=== PATIENT | female | born 1940 | race African-American/Black ===

== ENCOUNTER 2016-12-19 02:34 | Inpatient (IN) | payer MEDICARE, MEDICAID ==
[2016-12-19] VITALS (12 sets, daily range): BP systolic 124–166; BP diastolic 50–102
[~2016-12-19] VITALS: Ht 154.9 cm; Wt 60.4 kg
[2016-12-19] MEDS ORDERED: NITROGLYCERIN OINT 1GM/INCH UDPKT TD SCH (03:00)
[2016-12-19] MEDS ORDERED: ONDANSETRON HCL 4MG/2ML VIAL IV SCH (03:00)
[2016-12-19] MEDS ORDERED: MORPHINE SULFATE 4 MG/ML CPJ (NOT FOR IM USE) IV SCH ×2 (03:00→05:20)
[2016-12-19 07:06] LABS: CARBON DIOXIDE 23 mEq/L (21-32); CHLORIDE 101 mEq/L (98-107)
[2016-12-19 07:42] LABS: HEMATOCRIT. 39.5 % (36.0-48.0); HEMOGLOBIN. 13.1 g/dL (12.0-16.0); MEAN CORPUSCULAR HEMOGLOBIN 27.6 pg (28.0-32.0); MEAN CORPUSCULAR VOLUME 83.4 fL (81.0-99.0); MEAN PLATELET VOLUME 10.4 fl (7.4-10.4); PLATELET 247 x1000/uL (130-400); RED BLOOD CELL COUNT 4.74 mill/uL (4.2-5.4); RED CELL DISTRIBUTION WIDTH 15.1 % (11.6-14.6)
[2016-12-19 07:52] LABS: PLATELET ESTIMATE NORMAL
[2016-12-19] MEDS ORDERED: GUAIFENESIN 200MG/10ML SUGAR FREE UDC PO PRN (09:45)
[2016-12-19] MEDS ORDERED: MAGNESIUM/ALUMINUM HYDROXIDE/SIMETHICONE 30ML UDC PO PRN (09:45)
[2016-12-19] MEDS ORDERED: DIPHENHYDRAMINE 50MG/ML VIAL IV PRN (09:45)
[2016-12-19] MEDS ORDERED: NA PHOS,M-B/NA PHOS,DI-BA ENEMA 118ML PR PRN (09:45)
[2016-12-19] MEDS ORDERED: DOCUSATE SODIUM 100MG CAPSULE PO PRN (09:45)
[2016-12-19] MEDS ORDERED: ACETAMINOPHEN 325MG TABLET PO PRN (09:45)
[2016-12-19] MEDS ORDERED: CLONIDINE 0.1MG TABLET PO PRN (09:45)
[2016-12-19] MEDS ORDERED: TRAMADOL 50MG TABLET PO PRN (09:45)
[2016-12-19] MEDS ORDERED: NITROGLYCERIN 0.4MG TABLET SL SL PRN (09:45)
[2016-12-19] MEDS ORDERED: IPRATROPIUM/ALBUTEROL 0.5-3(2.5)MG/3ML NEB INH PRN (09:45)
[2016-12-19] MEDS ORDERED: LORAZEPAM 2MG/ML CPJ IV PRN (09:45)
[2016-12-19] MEDS ORDERED: ONDANSETRON HCL 4MG/2ML VIAL IV PRN (09:45)
[2016-12-19] MEDS ORDERED: DEXTROSE 50% WATER 50ML SYRINGE IV PRN (09:45)
[2016-12-19] MEDS ORDERED: ASPIRIN 325MG TABLET PO ONE (10:15)
[2016-12-19] MEDS ORDERED: HEPARIN 5000 UNITS/ML VIAL IV NR (10:15)
[2016-12-19] MEDS ORDERED: LIDOCAINE HCL 1% 20ML VIAL (Pyxis) INJ ONE (11:29)
[2016-12-19] MEDS ORDERED: MIDAZOLAM HCL 2 MG/2 ML VIAL ONE ×2 (11:30→12:11)
[2016-12-19] MEDS ORDERED: FENTANYL CITRATE/PF 50MCG/ML 2ML VIAL ONE (11:30)
[2016-12-19] MEDS ORDERED: IOHEXOL-300 100 ML BOTTLE ONE ×2 (11:33→12:01)
[2016-12-19] MEDS ORDERED: ASPIRIN/SOD BICARB/CITRIC ACID 324MG TAB EFF PO NR (12:00)
[2016-12-19] MEDS ORDERED: IOVERSOL 240MG/ML 100ML BOTTLE IV ONE (12:05)
[2016-12-19] MEDS ORDERED: INSULIN LISPRO 100 UNITS/ML SUBCUT SCH (12:20)
[2016-12-19] MEDS: BLOOD SUGAR DIAGNOSTIC STRIP TEST SCH ×3 (13:11→20:14)
[2016-12-19] MEDS: ENOXAPARIN 60MG/0.6ML SYR SUBCUT SCH (13:25)
[2016-12-19] MEDS: LOSARTAN POTASSIUM 25 MG TABLET PO SCH (13:48)
[2016-12-19] MEDS ORDERED: HEPARIN SODIUM 1,000 UNIT/1ML VIAL IV ONE (14:14)
[2016-12-19 14:21] LABS: CREATINE KINASE MB FRACTION 56.1 ng/mL (0.5-3.6)
[2016-12-19] MEDS: MORPHINE SULFATE 4 MG/ML CPJ (NOT FOR IM USE) IV PRN ×2 (15:16→19:32)
[2016-12-19] MEDS: NITROGLYCERIN OINT 1GM/INCH UDPKT TD SCH (16:35)
[2016-12-19] MEDS: METHIMAZOLE 5MG TABLET PO SCH (16:35)
[2016-12-19] MEDS ORDERED: ASPI-864 PO (16:59)
[2016-12-19] MEDS ORDERED: SITA100T11 PO (16:59)
[2016-12-19] MEDS ORDERED: SITA1TAB6 PO (17:00)
[2016-12-19] MEDS ORDERED: LISI30TA36 PO (17:01)
[2016-12-19] MEDS ORDERED: AMLO10TA80 PO (17:01)
[2016-12-19] MEDS ORDERED: METHAMAZOLE PO (17:02)
[2016-12-19] MEDS ORDERED: GLIM1TAB2 PO (17:04)
[2016-12-19] MEDS ORDERED: MELO-106 PO (17:04)
[2016-12-19] MEDS ORDERED: METF500T4 PO (17:05)
[2016-12-19] MEDS: INSULIN LISPRO 100 UNITS/ML SUBCUT SCH ×2 (17:14→22:11)
[2016-12-19] MEDS ORDERED: ZOLPIDEM TARTRATE 5MG TABLET PO PRN (21:00)
[2016-12-19] MEDS ORDERED: METOPROLOL TARTRATE 25MG TABLET PO SCH (21:00)
[2016-12-19] MEDS ORDERED: ATORVASTATIN CALCIUM 40MG TABLET PO SCH (21:00)
[2016-12-19] MEDS: METOPROLOL TARTRATE 50MG TABLET PO SCH (22:03)
[2016-12-19] MEDS: AMLODIPINE 5MG TABLET PO SCH (22:07)
[2016-12-20] VITALS (17 sets, daily range): BP systolic 97–143; BP diastolic 41–73
[2016-12-20] MEDS: NITROGLYCERIN OINT 1GM/INCH UDPKT TD SCH ×5 (00:05→21:48)
[2016-12-20] MEDS: BLOOD SUGAR DIAGNOSTIC STRIP TEST SCH ×4 (05:52→20:09)
[2016-12-20 07:24] LABS: BASOPHILS % 0.7 % (0.0-2.0); HEMATOCRIT. 34.4 % (36.0-48.0); HEMOGLOBIN. 11.3 g/dL (12.0-16.0); LYMPHOCYTES % 19.4 % (20.0-50.0); MEAN CORPUSCULAR HEMOGLOBIN 27.6 pg (28.0-32.0); MEAN CORPUSCULAR VOLUME 84.2 fL (81.0-99.0); MEAN PLATELET VOLUME 9.5 fl (7.4-10.4); NEUTROPHILS % 72.9 % (40.0-76.0); PLATELET 217 x1000/uL (130-400); RED BLOOD CELL COUNT 4.09 mill/uL (4.2-5.4); RED CELL DISTRIBUTION WIDTH 14.9 % (11.6-14.6)
[2016-12-20] MEDS: INSULIN LISPRO 100 UNITS/ML SUBCUT SCH ×4 (07:46→20:33)
[2016-12-20] MEDS: LOSARTAN POTASSIUM 25 MG TABLET PO SCH (07:46)
[2016-12-20] MEDS: METHIMAZOLE 5MG TABLET PO SCH (07:47)
[2016-12-20 07:57] LABS: CHLORIDE 99 mEq/L (98-107)
[2016-12-20 08:24] LABS: CARBON DIOXIDE 27 mEq/L (21-32); CREATINE KINASE 483 IU/L (26-192); HDL CHOLESTEROL 57 mg/dL (40-59); LDL CHOLESTEROL 110 mg/dL (5-100)
[2016-12-20] MEDS ORDERED: ASPIRIN 325MG EC TABLET PO SCH (09:00)
[2016-12-20] MEDS: AMLODIPINE 5MG TABLET PO SCH ×2 (09:46→20:32)
[2016-12-20] MEDS: METOPROLOL TARTRATE 50MG TABLET PO SCH ×2 (09:47→20:31)
[2016-12-20] MEDS: ENOXAPARIN 60MG/0.6ML SYR SUBCUT SCH (11:16)
[2016-12-20] MEDS: ATORVASTATIN CALCIUM 40MG TABLET PO SCH (20:31)
[2016-12-20] MEDS: INSULIN DETEMIR UD 100 UNITS/ML SYR SUBCUT SCH (21:53)
[2016-12-21] VITALS (13 sets, daily range): BP systolic 108–143; BP diastolic 47–73
[2016-12-21] MEDS: NITROGLYCERIN OINT 1GM/INCH UDPKT TD SCH ×4 (04:20→22:25)
[2016-12-21] MEDS: INSULIN LISPRO 100 UNITS/ML SUBCUT SCH ×4 (05:32→21:04)
[2016-12-21] MEDS: BLOOD SUGAR DIAGNOSTIC STRIP TEST SCH ×4 (05:32→20:15)
[2016-12-21 06:13] LABS: BASOPHILS % 0.4 % (0.0-2.0); EOSINOPHILS % 1.5 % (0.0-5.0); HEMATOCRIT. 29.6 % (36.0-48.0); HEMOGLOBIN. 9.8 g/dL (12.0-16.0); LYMPHOCYTES % 27.3 % (20.0-50.0); MEAN CORPUSCULAR HEMOGLOBIN 28.2 pg (28.0-32.0); MEAN CORPUSCULAR VOLUME 84.9 fL (81.0-99.0); MEAN PLATELET VOLUME 9.5 fl (7.4-10.4); MONOCYTES % 7.6 % (2.0-8.0); NEUTROPHILS % 63.2 % (40.0-76.0); PLATELET 227 x1000/uL (130-400); RED BLOOD CELL COUNT 3.49 mill/uL (4.2-5.4); RED CELL DISTRIBUTION WIDTH 14.7 % (11.6-14.6)
[2016-12-21] MEDS: METHIMAZOLE 5MG TABLET PO SCH (08:30)
[2016-12-21] MEDS: ASPIRIN 81MG EC TABLET PO SCH (08:31)
[2016-12-21] MEDS: METOPROLOL TARTRATE 50MG TABLET PO SCH ×2 (08:39→21:02)
[2016-12-21] MEDS: LOSARTAN POTASSIUM 25 MG TABLET PO SCH (08:39)
[2016-12-21] MEDS: AMLODIPINE 5MG TABLET PO SCH ×2 (08:39→21:02)
[2016-12-21] MEDS: CLOPIDOGREL 75MG TABLET PO SCH (08:40)
[2016-12-21] MEDS: MORPHINE SULFATE 4 MG/ML CPJ (NOT FOR IM USE) IV PRN (11:49)
[2016-12-21] MEDS: ENOXAPARIN 60MG/0.6ML SYR SUBCUT SCH (12:00)
[2016-12-21] MEDS: ATORVASTATIN CALCIUM 40MG TABLET PO SCH (21:00)
[2016-12-21] MEDS: INSULIN DETEMIR UD 100 UNITS/ML SYR SUBCUT SCH (22:19)
[2016-12-22] VITALS (11 sets, daily range): BP systolic 105–146; BP diastolic 49–67
[2016-12-22] MEDS: NITROGLYCERIN OINT 1GM/INCH UDPKT TD SCH ×3 (05:47→18:15)
[2016-12-22] MEDS: BLOOD SUGAR DIAGNOSTIC STRIP TEST SCH ×3 (05:47→17:49)
[2016-12-22] MEDS: INSULIN LISPRO 100 UNITS/ML SUBCUT SCH ×3 (09:11→17:20)
[2016-12-22] MEDS: LOSARTAN POTASSIUM 25 MG TABLET PO SCH (09:14)
[2016-12-22] MEDS: AMLODIPINE 5MG TABLET PO SCH (09:14)
[2016-12-22] MEDS: METOPROLOL TARTRATE 50MG TABLET PO SCH (09:15)
[2016-12-22] MEDS: METHIMAZOLE 5MG TABLET PO SCH (09:16)
[2016-12-22] MEDS: CLOPIDOGREL 75MG TABLET PO SCH (09:16)
[2016-12-22] MEDS: ASPIRIN 81MG EC TABLET PO SCH (09:16)
[2016-12-22] MEDS: ENOXAPARIN 60MG/0.6ML SYR SUBCUT SCH (12:05)
[2016-12-22 12:07] LABS: BG CARBOXYHEMOGLOBIN 0.3 % (0.5-1.5); BG DEOXYHEMOGLOBIN 12.7 % (0.0-5.0); BG FRACTION INSPIRED OXYGEN 21; BG METHEMOGLOBIN 0.2 % (0.0-1.5); BG OXYGEN SATURATION 87.2 % (92.0-98.5); BG OXYHEMOGLOBIN 86.8 % (94.0-97.0); BG PCO2 39.2 mmHg (35.0-45.0); BG PH 7.456 (7.350-7.450); BG PO2 51.3 mmHg (75.0-100.0); BG SAMPLE SITE RIGHT BRACHIAL; BG TOTAL HEMOGLOBIN 10.1 g/dL (12.0-18.0); BG VENT MODE ROOM AIR
[2016-12-22 13:34] LABS: HEMATOCRIT 28.1 % (36.0-48.0); HEMOGLOBIN 9.3 g/dL (12.0-16.0); MEAN CORPUSCULAR HEMOGLOBIN 27.9 pg (28.0-32.0); MEAN CORPUSCULAR VOLUME 84.2 fL (81.0-99.0); PLATELET 256 x1000/uL (130-400); RED BLOOD CELL COUNT 3.34 mill/uL (4.2-5.4); RED CELL DISTRIBUTION WIDTH 14.5 % (11.6-14.6)
== END 2016-12-22 21:05 | disposition home or self-care (01) | DRG 281 ==
LOC: ER 02:34 → 6WST 06:44 → ENRESERV 08:15 → SUPCPDRO 09:29 → 3WST 10:45
PROVIDERS: ADMIT Internal Medicine; ATTEND Internal Medicine
PROC: 4A023N7 Measurement of Cardiac Sampling and Pressure, Left Heart, Percutaneous Approach (ICD-10-PCS; principal; 2016-12-19)
PROC: B2111ZZ Fluoroscopy of Multiple Coronary Arteries using Low Osmolar Contrast (ICD-10-PCS; 2016-12-19)
PROC: B41 Imaging, Lower Arteries, Fluoroscopy (ICD-10-PCS; 2016-12-19)
DX: I21.4 Non-ST elevation (NSTEMI) myocardial infarction (principal); E87.1 Hypo-osmolality and hyponatremia; C91.10 Chronic lymphocytic leukemia of B-cell type not having achieved remission; I11.9 Hypertensive heart disease without heart failure; E11.51 Type 2 diabetes mellitus with diabetic peripheral angiopathy without gangrene; E05.20 Thyrotoxicosis with toxic multinodular goiter without thyrotoxic crisis or storm; I27.2 Other secondary pulmonary hypertension; R09.02 Hypoxemia; J44.9 Chronic obstructive pulmonary disease, unspecified; I25.110 Atherosclerotic heart disease of native coronary artery with unstable angina pectoris; E78.00 Pure hypercholesterolemia, unspecified; F17.210 Nicotine dependence, cigarettes, uncomplicated; I70.8 Atherosclerosis of other arteries; M81.0 Age-related osteoporosis without current pathological fracture; I34.0 Nonrheumatic mitral (valve) insufficiency; Z79.4 Long term (current) use of insulin; Z82.49 Family history of ischemic heart disease and other diseases of the circulatory system; Z82.62 Family history of osteoporosis; I25.2 Old myocardial infarction; Z79.899 Other long term (current) drug therapy; Z83.3 Family history of diabetes mellitus
CPT/HCPCS: 36415; 36600; 71010; 80048; 80053; 80061; 82375; 82550; 82553; 82805; 82962; 83036; 83735; 83880; 84439; 84443; 84484; 85025; 85027; 85347; 87040; 87077; 87086; 87186; 93005; 93306; 93458; 93970; 99285; C1760; C1769; C1887; C1893; J1644; J1650; J1815; J2060; J2250; J2270; J3010; J3490; Q9967

== ENCOUNTER 2016-12-30 21:46 | Inpatient (IN) | payer MEDICARE, MEDICAID ==
[~2016-12-30] VITALS: Ht 154.9 cm; Wt 59.4 kg
[~2016-12-30 21:46] MED LIST: AMLO10TA80 PO; ASPI-864 PO; GLIM1TAB2 PO; MELO-106 PO; METF500T4 PO; METHAMAZOLE PO; SITA100T11 PO; SITA1TAB6 PO
[2016-12-30] MEDS ORDERED: METHYLPREDNISOLONE SOD SUCC 125 MG/2 ML VIAL IV STA (22:15)
[2016-12-30] MEDS ORDERED: IPRATROPIUM BROMIDE (0.02%) 0.5MG/2.5ML NEB HHN STA (22:15)
[2016-12-30] MEDS ORDERED: MAGNESIUM 2 G PREMIX 50 ML IV ONE (22:15)
[2016-12-30] MEDS ORDERED: ALBUTEROL (0.083%) 2.5MG/3ML NEB HHN SCH (22:30)
[2016-12-30 22:55] LABS: BASOPHILS % 0.6 % (0.0-2.0); EOSINOPHILS % 1.1 % (0.0-5.0); HEMATOCRIT. 31.9 % (36.0-48.0); HEMOGLOBIN. 10.1 g/dL (12.0-16.0); LYMPHOCYTES % 15.9 % (20.0-50.0); MEAN CORPUSCULAR HEMOGLOBIN 27.4 pg (28.0-32.0); MEAN CORPUSCULAR VOLUME 86.7 fL (81.0-99.0); MEAN PLATELET VOLUME 8.3 fl (7.4-10.4); MONOCYTES % 5.5 % (2.0-8.0); NEUTROPHILS % 76.9 % (40.0-76.0); PLATELET 532 x1000/uL (130-400); RED BLOOD CELL COUNT 3.68 mill/uL (4.2-5.4); RED CELL DISTRIBUTION WIDTH 15.2 % (11.6-14.6)
[2016-12-30 22:58] LABS: CHLORIDE 104 mEq/L (98-107)
[2016-12-30 23:01] LABS: PROTHROMBIN TIME 10.7 sec (9.4-11.6)
[2016-12-30 23:04] LABS: CARBON DIOXIDE 27 mEq/L (21-32)
[2016-12-30 23:08] LABS: TROPONIN I 0.16 ng/mL (0.00-0.04)
[2016-12-31] VITALS (23 sets, daily range): BP systolic 66–157; BP diastolic 20–92
[2016-12-31] MEDS: PIPERACILLIN/TAZ 2.25G PREMIX 50 ML IV SCH
[2016-12-31] MEDS ORDERED: AZITHROMYCIN 500 MG in DEXT 5% WATER 250 ML IV ONE (00:45)
[2016-12-31] MEDS ORDERED: CEFTRIAXONE 1 G PREMIX 50 ML IV ONE (00:45)
[2016-12-31] MEDS: METHYLPREDNISOLONE SOD SUCC 40 MG/ML VIAL IV SCH ×3 (04:33→21:01)
[2016-12-31] MEDS: IPRATROPIUM/ALBUTEROL 0.5-3(2.5)MG/3ML NEB HHN SCH ×5 (04:35→21:39)
[2016-12-31] MEDS ORDERED: METO50TA5 PO (06:43)
[2016-12-31] MEDS ORDERED: CLOP75TA16 PO (06:43)
[2016-12-31] MEDS ORDERED: LOSA25TA12 PO (06:43)
[2016-12-31] MEDS ORDERED: FLUTICASONE INH (06:43)
[2016-12-31] MEDS ORDERED: FAMO20TA8 PO (06:43)
[2016-12-31] MEDS ORDERED: ATOR-2 PO (06:43)
[2016-12-31] MEDS ORDERED: PROAIR PO (12:36)
[2016-12-31] MEDS ORDERED: METH10TA7 PO (12:36)
[2016-12-31] MEDS: CLOPIDOGREL 75MG TABLET PO SCH (13:53)
[2016-12-31] MEDS: ASPIRIN 81MG EC TABLET PO SCH (13:53)
[2016-12-31] MEDS: METOPROLOL TARTRATE 50MG TABLET PO SCH ×2 (13:54→22:04)
[2016-12-31] MEDS: FAMOTIDINE 20MG TABLET PO SCH (13:55)
[2016-12-31] MEDS: AMLODIPINE 10MG TABLET PO SCH (13:55)
[2016-12-31] MEDS: LOSARTAN POTASSIUM 25 MG TABLET PO SCH ×2 (13:58→22:04)
[2016-12-31 15:49] LABS: BG BASE EXCESS -6.6 mmol/L (-2.0-2.0); BG BILEVEL POS AIRWAY PRESSURE ST=15/5; BG CARBOXYHEMOGLOBIN 0.3 % (0.5-1.5); BG DEOXYHEMOGLOBIN 3.6 % (0.0-5.0); BG FRACTION INSPIRED OXYGEN 60; BG HCO3 ACT 20.3 mmol/L (22.0-26.0); BG METHEMOGLOBIN 0.1 % (0.0-1.5); BG OXYGEN SATURATION 96.4 % (92.0-98.5); BG PCO2 46.6 mmHg (35.0-45.0); BG PH 7.258 (7.350-7.450); BG PO2 104.4 mmHg (75.0-100.0); BG PRESSURE SUPPORT 10; BG SAMPLE SITE LEFT BRACHIAL; BG TOTAL HEMOGLOBIN 10.8 g/dL (12.0-18.0); BG VENT MODE MASK - BIPAP; BG VENT RATE 16 set
[2016-12-31] MEDS ORDERED: LORAZEPAM 2MG/ML CPJ IV PRN ×2 (16:30→23:15)
[2016-12-31] MEDS: ENOXAPARIN 30MG/0.3ML SYR SUBCUT SCH (18:42)
[2016-12-31] MEDS ORDERED: PIPERACILLIN SODIUM/TAZOBACTAM 4.5 G in DEXT 5% WATER 100 ML IV SCH (21:30)
[2016-12-31 22:11] LABS: CREATINE KINASE MB FRACTION 2.1 ng/mL (0.5-3.6); TROPONIN I 0.12 ng/mL (0.00-0.04)
[2016-12-31] MEDS ORDERED: INSULIN LISPRO 100 UNITS/ML SUBCUT NR (23:15)
[2016-12-31] MEDS ORDERED: DEXTROSE 50% WATER 50ML SYRINGE IV PRN (23:15)
[2016-12-31] MEDS: LORAZEPAM 2MG/ML CPJ IM PRN (23:42)
[2017-01-01] VITALS (21 sets, daily range): BP systolic 85–144; BP diastolic 44–84
[2017-01-01] MEDS: INSULIN LISPRO 100 UNITS/ML SUBCUT SCH ×5 (01:24→23:45)
[2017-01-01] MEDS: BLOOD SUGAR DIAGNOSTIC STRIP TEST SCH ×5 (01:24→23:35)
[2017-01-01] MEDS: IPRATROPIUM/ALBUTEROL 0.5-3(2.5)MG/3ML NEB HHN SCH ×6 (01:51→21:20)
[2017-01-01] MEDS: METHYLPREDNISOLONE SOD SUCC 40 MG/ML VIAL IV SCH ×2 (05:39→16:54)
[2017-01-01] MEDS: PIPERACILLIN/TAZ 2.25G PREMIX 50 ML IV SCH ×4 (05:46→23:35)
[2017-01-01 06:29] LABS: HEMATOCRIT. 30.2 % (36.0-48.0); HEMOGLOBIN. 9.7 g/dL (12.0-16.0); MEAN CORPUSCULAR HEMOGLOBIN 27.7 pg (28.0-32.0); MEAN CORPUSCULAR VOLUME 86.3 fL (81.0-99.0); MEAN PLATELET VOLUME 8.7 fl (7.4-10.4); PLATELET 509 x1000/uL (130-400); RED CELL DISTRIBUTION WIDTH 15.1 % (11.6-14.6)
[2017-01-01] MEDS ORDERED: LIDOCAINE HCL 1% 20ML VIAL (Pyxis) INJ ONE (08:26)
[2017-01-01] MEDS ORDERED: SODIUM BICARBONATE 4% (2.4MEQ) 5ML VIAL IV ONE (08:26)
[2017-01-01 08:58] LABS: BG BASE EXCESS -3.4 mmol/L (-2.0-2.0); BG BILEVEL POS AIRWAY PRESSURE ST=15/5; BG CARBOXYHEMOGLOBIN 0.3 % (0.5-1.5); BG DEOXYHEMOGLOBIN 5.4 % (0.0-5.0); BG FRACTION INSPIRED OXYGEN 60; BG HCO3 ACT 22.6 mmol/L (22.0-26.0); BG METHEMOGLOBIN 0.3 % (0.0-1.5); BG OXYGEN SATURATION 94.6 % (92.0-98.5); BG PCO2 44.5 mmHg (35.0-45.0); BG PH 7.323 (7.350-7.450); BG PO2 77.1 mmHg (75.0-100.0); BG PRESSURE SUPPORT 10; BG SAMPLE SITE LEFT BRACHIAL; BG TOTAL HEMOGLOBIN 10.6 g/dL (12.0-18.0); BG VENT MODE MASK - BIPAP; BG VENT RATE 16 set
[2017-01-01] MEDS: LOSARTAN POTASSIUM 25 MG TABLET PO SCH ×2 (09:00→20:58)
[2017-01-01] MEDS: FAMOTIDINE 20MG TABLET PO SCH (09:00)
[2017-01-01] MEDS ORDERED: SODIUM POLYSTYRENE SULFONATE 15 G/60 ML BOT PO NR (09:15)
[2017-01-01] MEDS: CLOPIDOGREL 75MG TABLET PO SCH (10:53)
[2017-01-01] MEDS: ASPIRIN 81MG EC TABLET PO SCH (10:53)
[2017-01-01] MEDS: METOPROLOL TARTRATE 50MG TABLET PO SCH ×2 (11:43→20:59)
[2017-01-01] MEDS: AMLODIPINE 10MG TABLET PO SCH (11:44)
[2017-01-01 13:45] LABS: PLATELET ESTIMATE INCREASED
[2017-01-01] MEDS: ENOXAPARIN 30MG/0.3ML SYR SUBCUT SCH (16:55)
[2017-01-01] MEDS: LORAZEPAM 2MG/ML CPJ IM PRN (20:58)
[2017-01-01] MEDS ORDERED: HALOPERIDOL LACTATE 5MG/ML VIAL IM SCH (22:45)
[2017-01-02] VITALS (22 sets, daily range): BP systolic 99–154; BP diastolic 15–99
[2017-01-02] MEDS: IPRATROPIUM/ALBUTEROL 0.5-3(2.5)MG/3ML NEB HHN SCH ×6 (00:27→20:17)
[2017-01-02] MEDS: LORAZEPAM 2MG/ML CPJ IM PRN (01:16)
[2017-01-02] MEDS: METHYLPREDNISOLONE SOD SUCC 40 MG/ML VIAL IV SCH ×2 (05:15→17:36)
[2017-01-02] MEDS: BLOOD SUGAR DIAGNOSTIC STRIP TEST SCH ×3 (05:15→17:22)
[2017-01-02] MEDS: PIPERACILLIN/TAZ 2.25G PREMIX 50 ML IV SCH ×3 (05:15→17:36)
[2017-01-02] MEDS: INSULIN LISPRO 100 UNITS/ML SUBCUT SCH ×3 (05:30→17:38)
[2017-01-02] MEDS: AMLODIPINE 10MG TABLET PO SCH (09:00)
[2017-01-02] MEDS: METOPROLOL TARTRATE 50MG TABLET PO SCH ×3 (09:00→21:12)
[2017-01-02] MEDS: FAMOTIDINE 20MG TABLET PO SCH (09:00)
[2017-01-02] MEDS: LOSARTAN POTASSIUM 25 MG TABLET PO SCH ×2 (09:00→21:12)
[2017-01-02] MEDS: ASPIRIN 81MG EC TABLET PO SCH (12:19)
[2017-01-02] MEDS: CLOPIDOGREL 75MG TABLET PO SCH (12:19)
[2017-01-02 13:59] LABS: BG BASE EXCESS 1.4 mmol/L (-2.0-2.0); BG BILEVEL POS AIRWAY PRESSURE ST=15/5; BG CARBOXYHEMOGLOBIN 0.3 % (0.5-1.5); BG DEOXYHEMOGLOBIN 4.8 % (0.0-5.0); BG FRACTION INSPIRED OXYGEN 60; BG HCO3 ACT 26.5 mmol/L (22.0-26.0); BG METHEMOGLOBIN 0.3 % (0.0-1.5); BG OXYGEN SATURATION 95.2 % (92.0-98.5); BG OXYHEMOGLOBIN 94.6 % (94.0-97.0); BG PCO2 44.1 mmHg (35.0-45.0); BG PH 7.396 (7.350-7.450); BG PO2 79.5 mmHg (75.0-100.0); BG PRESSURE SUPPORT 10; BG SAMPLE SITE LEFT BRACHIAL; BG TOTAL HEMOGLOBIN 9.9 g/dL (12.0-18.0); BG VENT MODE MASK - BIPAP; BG VENT RATE 16 set
[2017-01-02] MEDS ORDERED: DILTIAZEM HCL 125 MG in DEXT 5% WATER 100 ML IV PRN (14:00)
[2017-01-02 14:16] LABS: HEMATOCRIT. 27.9 % (36.0-48.0); MEAN CORPUSCULAR HEMOGLOBIN 27.4 pg (28.0-32.0); MEAN PLATELET VOLUME 8.9 fl (7.4-10.4); PLATELET 464 x1000/uL (130-400); RED BLOOD CELL COUNT 3.28 mill/uL (4.2-5.4); RED CELL DISTRIBUTION WIDTH 14.9 % (11.6-14.6)
[2017-01-02 14:36] LABS: CREATINE KINASE MB FRACTION 2.5 ng/mL (0.5-3.6)
[2017-01-02 15:08] LABS: TROPONIN I 0.87 ng/mL (0.00-0.04)
[2017-01-02 16:33] LABS: PLATELET ESTIMATE INCREASED
[2017-01-02] MEDS ORDERED: FUROSEMIDE 40MG/4ML VIAL IVP SCH (17:15)
[2017-01-02] MEDS ORDERED: KCL 20MEQ/100ML PREMIX 100 ML IV NR (17:30)
[2017-01-02] MEDS: ENOXAPARIN 30MG/0.3ML SYR SUBCUT SCH (17:37)
[2017-01-02] MEDS ORDERED: DEXT 5%/0.45% NACL 1000ML 1,000 ML IV SCH (21:00)
[2017-01-02] MEDS: ATORVASTATIN CALCIUM 40MG TABLET PO SCH (21:12)
[2017-01-03] VITALS (13 sets, daily range): BP systolic 100–167; BP diastolic 43–99
[2017-01-03] MEDS: IPRATROPIUM/ALBUTEROL 0.5-3(2.5)MG/3ML NEB HHN SCH ×6 (00:38→20:09)
[2017-01-03] MEDS: INSULIN LISPRO 100 UNITS/ML SUBCUT SCH ×4 (00:38→17:40)
[2017-01-03] MEDS: BLOOD SUGAR DIAGNOSTIC STRIP TEST SCH ×4 (00:39→17:39)
[2017-01-03] MEDS: PIPERACILLIN/TAZ 2.25G PREMIX 50 ML IV SCH ×3 (00:40→10:14)
[2017-01-03] MEDS: LORAZEPAM 2MG/ML CPJ IM PRN ×2 (03:41→09:26)
[2017-01-03] MEDS: METHYLPREDNISOLONE SOD SUCC 40 MG/ML VIAL IV SCH ×2 (06:53→17:39)
[2017-01-03 06:54] LABS: BASOPHILS % 0.2 % (0.0-2.0); LYMPHOCYTES % 11.2 % (20.0-50.0); MEAN CORPUSCULAR HEMOGLOBIN 27.1 pg (28.0-32.0); MEAN PLATELET VOLUME 8.5 fl (7.4-10.4); MONOCYTES % 6.7 % (2.0-8.0); NEUTROPHILS % 81.9 % (40.0-76.0); PLATELET 477 x1000/uL (130-400); RED BLOOD CELL COUNT 3.33 mill/uL (4.2-5.4); RED CELL DISTRIBUTION WIDTH 15.1 % (11.6-14.6)
[2017-01-03 08:28] LABS: TROPONIN I 1.5 ng/mL (0.00-0.04)
[2017-01-03] MEDS: ASPIRIN 81MG EC TABLET PO SCH (08:53)
[2017-01-03] MEDS: CLOPIDOGREL 75MG TABLET PO SCH (08:53)
[2017-01-03] MEDS: LOSARTAN POTASSIUM 25 MG TABLET PO SCH ×2 (08:54→21:56)
[2017-01-03] MEDS: METOPROLOL TARTRATE 50MG TABLET PO SCH ×2 (08:54→21:56)
[2017-01-03] MEDS: FAMOTIDINE 20MG TABLET PO SCH (08:54)
[2017-01-03] MEDS: AMLODIPINE 10MG TABLET PO SCH (08:54)
[2017-01-03] MEDS ORDERED: LIDOCAINE HCL/PF 1% 2ML VIAL ONE (08:56)
[2017-01-03] MEDS: POTASSIUM CHLORIDE 20MEQ/PACKET PO SCH (11:59)
[2017-01-03] MEDS: FUROSEMIDE 40MG/4ML VIAL IVP SCH ×2 (11:59→17:39)
[2017-01-03 12:07] LABS: CLARITY URINE CLOUDY (CLEAR); COLOR URINE YELLOW (YELLOW); GLUCOSE URINE TRACE (NEGATIVE); KETONES URINE NEGATIVE (NEGATIVE); LEUKOCYTE ESTERASE URINE 2+ (NEGATIVE); NITRITE URINE NEGATIVE (NEGATIVE); OCCULT BLOOD URINE 3+ (NEGATIVE); PROTEIN URINE TRACE (NEGATIVE); SPECIFIC GRAVITY URINE 1.015 (1.005-1.030); UROBILINOGEN URINE 0.2 E.U./dL (0.2-1.0)
[2017-01-03] MEDS: SODIUM CHLORIDE 0.45% 1,000 ML IV SCH (12:30)
[2017-01-03 12:32] LABS: BG BASE EXCESS 2.5 mmol/L (-2.0-2.0); BG BILEVEL POS AIRWAY PRESSURE 15/5; BG CARBOXYHEMOGLOBIN 0.3 % (0.5-1.5); BG DEOXYHEMOGLOBIN 2.3 % (0.0-5.0); BG FRACTION INSPIRED OXYGEN 50; BG HCO3 ACT 27.6 mmol/L (22.0-26.0); BG METHEMOGLOBIN 0.3 % (0.0-1.5); BG OXYGEN SATURATION 97.7 % (92.0-98.5); BG OXYHEMOGLOBIN 97.1 % (94.0-97.0); BG PCO2 45.5 mmHg (35.0-45.0); BG PH 7.401 (7.350-7.450); BG PO2 119.7 mmHg (75.0-100.0); BG SAMPLE SITE RIGHT BRACHIAL; BG TOTAL HEMOGLOBIN 9.4 g/dL (12.0-18.0); BG VENT MODE MASK - BIPAP; BG VENT RATE 16 set
[2017-01-03] MEDS ORDERED: LEVOFLOXACIN 500MG PREMIX 100 ML IV NR (14:00)
[2017-01-03] MEDS: PIPERACILLIN/TAZ 3.375G PREMIX 50 ML IV SCH (17:39)
[2017-01-03] MEDS: ENOXAPARIN 30MG/0.3ML SYR SUBCUT SCH (17:39)
[2017-01-03] MEDS ORDERED: ATORVASTATIN CALCIUM 40MG TABLET PO SCH (21:00)
[2017-01-03] MEDS: ATORVASTATIN CALCIUM 40MG TABLET PO SCH (21:56)
[2017-01-04] VITALS (15 sets, daily range): BP systolic 105–145; BP diastolic 41–72
[2017-01-04] MEDS: IPRATROPIUM/ALBUTEROL 0.5-3(2.5)MG/3ML NEB HHN SCH ×6 (00:07→20:38)
[2017-01-04] MEDS: BLOOD SUGAR DIAGNOSTIC STRIP TEST SCH ×5 (00:50→21:11)
[2017-01-04] MEDS: INSULIN LISPRO 100 UNITS/ML SUBCUT SCH ×5 (00:52→21:10)
[2017-01-04] MEDS: PIPERACILLIN/TAZ 3.375G PREMIX 50 ML IV SCH ×3 (02:18→17:41)
[2017-01-04] MEDS: METHYLPREDNISOLONE SOD SUCC 40 MG/ML VIAL IV SCH (05:19)
[2017-01-04 06:04] LABS: CARBON DIOXIDE 37 mEq/L (21-32); CHLORIDE 95 mEq/L (98-107)
[2017-01-04 06:17] LABS: BASOPHILS % 0.1 % (0.0-2.0); HEMATOCRIT. 29.8 % (36.0-48.0); HEMOGLOBIN. 9.8 g/dL (12.0-16.0); LYMPHOCYTES % 15.1 % (20.0-50.0); MEAN CORPUSCULAR HEMOGLOBIN 27.5 pg (28.0-32.0); MEAN CORPUSCULAR VOLUME 83.7 fL (81.0-99.0); MEAN PLATELET VOLUME 8.8 fl (7.4-10.4); MONOCYTES % 6.7 % (2.0-8.0); NEUTROPHILS % 78.1 % (40.0-76.0); PLATELET 440 x1000/uL (130-400); RED BLOOD CELL COUNT 3.56 mill/uL (4.2-5.4); RED CELL DISTRIBUTION WIDTH 14.8 % (11.6-14.6)
[2017-01-04] MEDS: CLOPIDOGREL 75MG TABLET PO SCH (08:31)
[2017-01-04] MEDS: LOSARTAN POTASSIUM 25 MG TABLET PO SCH ×2 (08:31→21:06)
[2017-01-04] MEDS: METOPROLOL TARTRATE 50MG TABLET PO SCH ×2 (08:31→21:09)
[2017-01-04] MEDS: ASPIRIN 81MG EC TABLET PO SCH (08:31)
[2017-01-04] MEDS: POTASSIUM CHLORIDE 20MEQ/PACKET PO SCH (08:31)
[2017-01-04] MEDS: FUROSEMIDE 40MG/4ML VIAL IVP SCH ×2 (08:31→17:41)
[2017-01-04] MEDS: AMLODIPINE 10MG TABLET PO SCH (08:32)
[2017-01-04] MEDS: FAMOTIDINE 20MG TABLET PO SCH (08:32)
[2017-01-04] MEDS: SODIUM CHLORIDE 0.45% 1,000 ML IV SCH (12:00)
[2017-01-04] MEDS: LEVOFLOXACIN 250MG PREMIX 50 ML IV SCH (13:36)
[2017-01-04] MEDS: POTASSIUM CHLORIDE 10MEQ TABLET SR PO SCH (15:05)
[2017-01-04] MEDS: PREDNISONE 20MG TABLET PO SCH (15:05)
[2017-01-04] MEDS: ENOXAPARIN 30MG/0.3ML SYR SUBCUT SCH (17:41)
[2017-01-04] MEDS: ATORVASTATIN CALCIUM 40MG TABLET PO SCH (21:04)
[2017-01-05] VITALS (11 sets, daily range): BP systolic 103–150; BP diastolic 40–76
[2017-01-05] MEDS: IPRATROPIUM/ALBUTEROL 0.5-3(2.5)MG/3ML NEB HHN SCH ×6 (00:58→21:12)
[2017-01-05] MEDS: PIPERACILLIN/TAZ 3.375G PREMIX 50 ML IV SCH ×3 (02:08→17:44)
[2017-01-05 06:03] LABS: BASOPHILS % 0.1 % (0.0-2.0); HEMATOCRIT. 29.1 % (36.0-48.0); HEMOGLOBIN. 9.5 g/dL (12.0-16.0); LYMPHOCYTES % 17.3 % (20.0-50.0); MEAN CORPUSCULAR HEMOGLOBIN 27.4 pg (28.0-32.0); MEAN PLATELET VOLUME 8.9 fl (7.4-10.4); MONOCYTES % 6.3 % (2.0-8.0); NEUTROPHILS % 76.3 % (40.0-76.0); PLATELET 407 x1000/uL (130-400); RED BLOOD CELL COUNT 3.46 mill/uL (4.2-5.4); RED CELL DISTRIBUTION WIDTH 14.8 % (11.6-14.6)
[2017-01-05] MEDS: BLOOD SUGAR DIAGNOSTIC STRIP TEST SCH ×4 (06:34→21:00)
[2017-01-05] MEDS: INSULIN LISPRO 100 UNITS/ML SUBCUT SCH ×4 (06:34→21:39)
[2017-01-05] MEDS: ASPIRIN 81MG EC TABLET PO SCH (08:17)
[2017-01-05] MEDS: FUROSEMIDE 40MG/4ML VIAL IVP SCH (08:17)
[2017-01-05] MEDS: CLOPIDOGREL 75MG TABLET PO SCH (08:17)
[2017-01-05] MEDS: POTASSIUM CHLORIDE 10MEQ TABLET SR PO SCH (08:17)
[2017-01-05] MEDS: PREDNISONE 20MG TABLET PO SCH (08:17)
[2017-01-05] MEDS: POTASSIUM CHLORIDE 20MEQ/PACKET PO SCH (08:17)
[2017-01-05] MEDS: FAMOTIDINE 20MG TABLET PO SCH (08:17)
[2017-01-05] MEDS: AMLODIPINE 10MG TABLET PO SCH (08:18)
[2017-01-05] MEDS: LOSARTAN POTASSIUM 25 MG TABLET PO SCH ×2 (08:18→21:42)
[2017-01-05] MEDS: METOPROLOL TARTRATE 50MG TABLET PO SCH ×2 (08:18→21:42)
[2017-01-05] MEDS: SODIUM CHLORIDE 0.45% 1,000 ML IV SCH (12:28)
[2017-01-05] MEDS: LEVOFLOXACIN 250MG PREMIX 50 ML IV SCH (14:15)
[2017-01-05] MEDS ORDERED: POTASSIUM CHLORIDE 10MEQ TABLET SR PO NR (17:15)
[2017-01-05] MEDS: ENOXAPARIN 30MG/0.3ML SYR SUBCUT SCH (17:44)
[2017-01-05 18:55] LABS: BASOPHILS % 0.3 % (0.0-2.0); EOSINOPHILS % 0.2 % (0.0-5.0); HEMATOCRIT. 27.5 % (36.0-48.0); LYMPHOCYTES % 11.6 % (20.0-50.0); MEAN CORPUSCULAR HEMOGLOBIN 27.7 pg (28.0-32.0); MEAN CORPUSCULAR VOLUME 84.9 fL (81.0-99.0); MEAN PLATELET VOLUME 8.9 fl (7.4-10.4); MONOCYTES % 5.1 % (2.0-8.0); NEUTROPHILS % 82.8 % (40.0-76.0); PLATELET 370 x1000/uL (130-400); RED BLOOD CELL COUNT 3.24 mill/uL (4.2-5.4)
[2017-01-05] MEDS ORDERED: INSULIN DETEMIR UD 100 UNITS/ML SYR SUBCUT NR (20:00)
[2017-01-05] MEDS: ATORVASTATIN CALCIUM 40MG TABLET PO SCH (21:41)
[2017-01-05] MEDS: FUROSEMIDE 20MG TABLET PO SCH (21:42)
[2017-01-06] VITALS (9 sets, daily range): BP systolic 105–137; BP diastolic 46–64
[2017-01-06] MEDS: IPRATROPIUM/ALBUTEROL 0.5-3(2.5)MG/3ML NEB HHN SCH ×4 (01:16→13:09)
[2017-01-06] MEDS: PIPERACILLIN/TAZ 3.375G PREMIX 50 ML IV SCH ×2 (01:50→10:52)
[2017-01-06] MEDS: BLOOD SUGAR DIAGNOSTIC STRIP TEST SCH ×2 (06:44→11:41)
[2017-01-06] MEDS: INSULIN LISPRO 100 UNITS/ML SUBCUT SCH ×2 (06:44→11:57)
[2017-01-06 07:10] LABS: BASOPHILS % 0.2 % (0.0-2.0); EOSINOPHILS % 1.4 % (0.0-5.0); HEMOGLOBIN. 9.9 g/dL (12.0-16.0); LYMPHOCYTES % 26.7 % (20.0-50.0); MEAN CORPUSCULAR HEMOGLOBIN 27.7 pg (28.0-32.0); MEAN CORPUSCULAR VOLUME 84.2 fL (81.0-99.0); MEAN PLATELET VOLUME 8.8 fl (7.4-10.4); MONOCYTES % 5.6 % (2.0-8.0); NEUTROPHILS % 66.1 % (40.0-76.0); PLATELET 399 x1000/uL (130-400); RED BLOOD CELL COUNT 3.56 mill/uL (4.2-5.4); RED CELL DISTRIBUTION WIDTH 14.5 % (11.6-14.6)
[2017-01-06] MEDS: POTASSIUM CHLORIDE 10MEQ TABLET SR PO SCH (08:54)
[2017-01-06] MEDS: POTASSIUM CHLORIDE 20MEQ/PACKET PO SCH (08:54)
[2017-01-06] MEDS: PREDNISONE 20MG TABLET PO SCH (08:54)
[2017-01-06] MEDS: CLOPIDOGREL 75MG TABLET PO SCH (08:54)
[2017-01-06] MEDS: ASPIRIN 81MG EC TABLET PO SCH (08:54)
[2017-01-06] MEDS: FUROSEMIDE 20MG TABLET PO SCH (08:54)
[2017-01-06] MEDS: LOSARTAN POTASSIUM 25 MG TABLET PO SCH (08:55)
[2017-01-06] MEDS: FAMOTIDINE 20MG TABLET PO SCH (08:55)
[2017-01-06] MEDS: AMLODIPINE 10MG TABLET PO SCH (08:55)
[2017-01-06] MEDS: METOPROLOL TARTRATE 50MG TABLET PO SCH (08:55)
[2017-01-06] MEDS ORDERED: POTASSIUM CHLORIDE 20MEQ TABLET SR PO NR (09:30)
[2017-01-06] MEDS ORDERED: MAGNESIUM 1 G PREMIX 100 ML IV NR (12:00)
[2017-01-06] MEDS: SODIUM CHLORIDE 0.45% 1,000 ML IV SCH (12:01)
[2017-01-06] MEDS ORDERED: LEVOFLOXACIN 250MG TABLET PO SCH (14:00)
== END 2017-01-06 11:28 | disposition home health service (06) | DRG 871 ==
LOC: ER 21:46 → 3WST 12-31 01:16 → ENRESERV 12-31 02:00
PROVIDERS: ADMIT Internal Medicine; ATTEND Internal Medicine
PROC: 5A09457 Assistance with Respiratory Ventilation, 24-96 Consecutive Hours, Continuous Positive Airway Pressure (ICD-10-PCS; 2016-12-30)
PROC: 02HV33Z Insertion of Infusion Device into Superior Vena Cava, Percutaneous Approach (ICD-10-PCS; principal; 2017-01-01)
PROC: B548ZZA Ultrasonography of Superior Vena Cava, Guidance (ICD-10-PCS; 2017-01-01)
DX: A41.9 Sepsis, unspecified organism (principal); I21.4 Non-ST elevation (NSTEMI) myocardial infarction; J96.90 Respiratory failure, unspecified, unspecified whether with hypoxia or hypercapnia; I50.33 Acute on chronic diastolic (congestive) heart failure; J18.9 Pneumonia, unspecified organism; I11.0 Hypertensive heart disease with heart failure; I27.81 Cor pulmonale (chronic); E11.51 Type 2 diabetes mellitus with diabetic peripheral angiopathy without gangrene; J44.1 Chronic obstructive pulmonary disease with (acute) exacerbation; J44.0 Chronic obstructive pulmonary disease with (acute) lower respiratory infection; D64.9 Anemia, unspecified; F41.9 Anxiety disorder, unspecified; I25.10 Atherosclerotic heart disease of native coronary artery without angina pectoris; F17.200 Nicotine dependence, unspecified, uncomplicated; Z79.82 Long term (current) use of aspirin; Z79.84 Long term (current) use of oral hypoglycemic drugs; Z79.899 Other long term (current) drug therapy; I25.2 Old myocardial infarction; Z95.5 Presence of coronary angioplasty implant and graft; Z86.73 Personal history of transient ischemic attack (TIA), and cerebral infarction without residual deficits
CPT/HCPCS: 36415; 36569; 36600; 71010; 71250; 76937; 80048; 80053; 81001; 82375; 82550; 82553; 82805; 82947; 82962; 83735; 83880; 84443; 84484; 85025; 85610; 87040; 93005; 94640; 94660; 94664; 96365; 96367; 97116; 97162; 97166; 99285; A6261; C1725; J0456; J0696; J1630; J1650; J1815; J1940; J1956; J2060; J2543; J2920; J2930; J3475; J3480; J3490; J7040; J7050; J7060; J7512; J7611; J7620; A4315